=== PATIENT | female | born 1960 | race American Indian/Alaskan Native ===

== ENCOUNTER 2021-06-04 10:23 | Outpatient (CLI) | payer BC ==
--- NOTE | 2021-06-26 09:46 | Mammography Report ---
DIGITAL SCREENING MAMMOGRAM WITH CAD, 06/04/2021 CLINICAL INFORMATION / INDICATION: Routine screening mammography. TECHNIQUE: Digital bilateral 2D mammography was obtained in the craniocaudal and mediolateral obliqu e projections. This examination was interpreted with the benefit of Computer-Aided Detection analysis . COMPARISON: None available FINDINGS: Breast Density: There are scattered areas of fibroglandular density. No dominant mass, suspicious calcifications, or architectural distortion in the right breast. There is a 2.2 cm focal asymmetric density in the left breast 4:00 position located 7 cm from the nip ple which requires further evaluation. IMPRESSION: 1. A focal asymmetric density in the left breast requires further evaluation with spot compression vi ews and targeted ultrasound if needed. Follow up recommendation: Special View: Spot BI-RADS Category 0: Incomplete. Needs additional imaging evaluation and/or prior mammograms for rosanne abebe. A "normal" or negative report should not discourage follow up or biopsy of a clinically significant f inding. A written summary of these findings will be mailed to the patient. The patient will be entered into a mammography reporting system which will generate a reminder letter for the patient's next appointmen t at the appropriate interval. The [employer] recommends yearly mammograms starting at age 40 and continuing as l kwame as a woman is in good health. Breast MRI is recommended for women with an approximate 20-25% or greater lifetime risk of breast cancer, including women with a strong family history of breast or ova shiloh cancer or who have been treated for Hodgkin's disease. Signer Name: Edilma Cooper MD Signed: 06/26/2021 9:41 AM Workstation Name: [id number]
== END 2021-06-04 10:24 | disposition home or self-care (01) ==
LOC: MAMMO 10:23
PROVIDERS: ATTEND Nurse Practitioner Family
DX: Z12.31 Encounter for screening mammogram for malignant neoplasm of breast (principal)
CPT/HCPCS: 77067